=== PATIENT | female | born 1995 | race Caucasian/White ===

== ENCOUNTER → 2019-01-13 | Outpatient (CLI) | payer BC ==
[~2019-01-13] MED LIST: ARIP15 PO; Ativan0.5 MG PO; Augmentin 875-1 EACH PO; CLON.5 PO; CYCL10; CYCL10 PO; DILT120ERA PO; DOCU100 PO; FAMO20 PO; IBUP600; LAMO50; LAVAP17G PO; LORA.5 PO; Loxapine5 MG PO; MONO-LINYAH1 EACH PO; Mononessa1 EACH PO; Norco 10-325 T1 EACH PO; Norco 5-325 Ta1 EACH PO; OMEP20ER PO; OMEP40CA12 PO; OXYACE5T PO; PRAZ1 PO; Percocet 5-3251 EACH PO; Prazosin HCl1 MG PO; SUCR1 PO; SULF500 PO; Sprintec1 EACH PO; VENL150ER PO; VENL25 PO; Zofran Odt4 MG SL
[2019-01-14 09:10] LABS: Candida species (DNA Probe) Negative (NEGATIVE); G. vaginalis (DNA Probe) Negative (NEGATIVE); T. vaginalis (DNA Probe) Negative (NEGATIVE)
== END | disposition home or self-care (01) ==
LOC: LAB 16:20 → LAB SHORT 16:20
PROVIDERS: Family Medicine
DX: N89.8 Other specified noninflammatory disorders of vagina (principal)
CPT/HCPCS: 87480; 87510; 87660

== ENCOUNTER → 2019-01-14 | Outpatient (CLI) | payer BC | END | disposition home or self-care (01) | LOC: LAB SHORT 07:52 → PLD 07:52 | DX: D48.5 Neoplasm of uncertain behavior of skin (principal) | CPT/HCPCS: 88305 ==

== ENCOUNTER → 2020-02-15 | Outpatient (CLI) | payer BC | END | disposition home or self-care (01) | LOC: LAB SHORT 15:22 → LAB 15:22 | DX: R19.7 Diarrhea, unspecified (principal) | CPT/HCPCS: 87493 ==

== ENCOUNTER 2020-10-19 12:10 | Day surgery (SDC) | payer BC ==
[~2020-10-19] VITALS: Ht 167.6 cm; Wt 130.6 kg
[~2020-10-19 12:10] MED LIST changes: +LAMO100 PO; -LAMO50; +MOBIC15 MG PO; +PRENATAL TABLE1 EAC2 PO
--- NOTE | 2020-10-19 13:34 | NUR ---
REPORT GIVEN TO JON LONDONO RN.
--- NOTE | 2020-10-19 14:28 | NUR ---
ASSUMED CARE OF PT. PAPERWORK AND COMNSENTS COMPLETE. VSS. Ambulatory in Day Surgery Surgical site prepped with 2% Chlorhexidine cloth wipe. Patient reports completing Chlorhexadine shower X2 prior to admission to hospital. Pre-Op teaching done. Pt verbalizes understanding.
--- NOTE | 2020-10-19 14:41 | NUR ---
10/19/20 1441 Jacquelin Madrigal LIDOCAINE 2% GIVEN TO THE FIELD BY DR FREEMAN FROM THE [facility]. DR HERNANDEZ INJECTED THE PT.
--- NOTE | 2020-10-19 16:20 | NUR ---
Patient up to Ambulate independently. Gait steady. Discharge instructions reviewed with patient. Patient verbalizes understanding. Copy given to patient to take home. Discharged via wheelchair to private car for ride home.
== END 2020-10-19 23:12 | disposition home or self-care (01) ==
LOC: ORSCMMR 12:10 → ORSCSDS 10-20 09:00
PROVIDERS: Orthopaedic Surgery
PROC: 0LN50ZZ Release Right Lower Arm and Wrist Tendon, Open Approach (ICD-10-PCS; principal; 2020-10-19 13:30)
DX: M65.4 Radial styloid tenosynovitis [de Quervain] (principal); I10 Essential (primary) hypertension; E28.2 Polycystic ovarian syndrome; E66.01 Morbid (severe) obesity due to excess calories; Z68.42 Body mass index [BMI] 45.0-49.9, adult; Z79.899 Other long term (current) drug therapy
CPT/HCPCS: A9270; J0690; J2250; J2405; J3010; J7120

== ENCOUNTER 2023-01-17 23:55 | Emergency (ER) | payer OTHER ==
[~2023-01-17] VITALS: Ht 172.7 cm; Wt 129.7 kg
== END 2023-01-18 02:00 | disposition home or self-care (01) ==
LOC: ER 23:55
DX: S69.91XA Unspecified injury of right wrist, hand and finger(s), initial encounter (principal); W23.0XXA Caught, crushed, jammed, or pinched between moving objects, initial encounter; I10 Essential (primary) hypertension; J45.909 Unspecified asthma, uncomplicated
CPT/HCPCS: 29105; 73110; 99283-25; A9270

== ENCOUNTER → 2023-11-06 | Outpatient (CLI) | payer BC ==
[2023-11-08 09:17] LABS: APTIMA MEDIA TYPE Urine; C. TRACHOMATIS BY TMA Negative (Negative); N. GONORRHOEAE BY TMA Negative (Negative); SPECIMEN SOURCE Urine
== END ==
LOC: LAB 12:19 → LAB SHORT 12:19
PROVIDERS: Family Medicine
DX: Z34.01 Encounter for supervision of normal first pregnancy, first trimester (principal); Z3A.01 Less than 8 weeks gestation of pregnancy
CPT/HCPCS: 87086

== ENCOUNTER → 2023-11-26 | Outpatient (CLI) | payer BC, OTHER ==
[2023-11-29 19:51] LABS: APTIMA MEDIA TYPE Urine; C. TRACHOMATIS BY TMA Negative (Negative); N. GONORRHOEAE BY TMA Negative (Negative); SPECIMEN SOURCE Urine
== END ==
LOC: LAB SHORT 13:50 → LAB 13:50
PROVIDERS: Family Medicine
DX: Z34.01 Encounter for supervision of normal first pregnancy, first trimester (principal); Z3A.01 Less than 8 weeks gestation of pregnancy
CPT/HCPCS: 87491; 87591

== ENCOUNTER → 2024-05-10 | Outpatient (CLI) | payer BC, OTHER ==
[2024-05-10 19:25] LABS: Protein, Urine Random 31.8 mg/dL (0.0-11.9); Protein/Creat Ratio, Ur Random 0.2
== END | disposition home or self-care (01) ==
LOC: LAB 17:58 → LAB SHORT 17:58
PROVIDERS: Family Medicine
DX: Z34.02 Encounter for supervision of normal first pregnancy, second trimester (principal)
CPT/HCPCS: 82570; 84156

== ENCOUNTER 2024-05-19 06:14 | Observation (INO) | payer BC, OTHER ==
[2024-05-19] VITALS (24 sets, daily range): BP systolic 115–173; BP diastolic 59–99
[~2024-05-19] VITALS: Ht 170.2 cm; Wt 133.2 kg
[2024-05-19 05:25] LABS: BASOPHILS ABSOLUTE AUTO 0.02 K/mm3 (0.00-0.23); BASOPHILS PERCENT AUTO 0 % (0-2); EOSINOPHILS PERCENT AUTO 0 % (0-6); Hematocrit 31.7 % (33.0-51.0); Hemoglobin 11.2 g/dL (11.5-16.0); IMMATURE GRAN ABSOLUTE AUTO 0.02 K/mm3 (0.00-0.10); IMMATURE GRAN PERCENT AUTO 0 % (0-1); LYMPHOCYTES ABSOLUTE AUTO 0.63 K/mm3 (0.84-5.20); LYMPHOCYTES PERCENT AUTO 9 % (21-46); MONOCYTES ABSOLUTE AUTO 0.48 K/mm3 (0.16-1.47); MONOCYTES PERCENT AUTO 7 % (4-13); Mean Corpuscular HGB Conc 35.3 g/dL (31.5-36.5); Mean Corpuscular Volume 85 fL (80-100); Mean Platelet Volume 12.2 fL (9.1-12.4); NEUTROPHILS ABSOLUTE AUTO 6.09 K/mm3 (1.96-9.15); NEUTROPHILS PERCENT AUTO 84 % (41-73); Platelet Count 177 K/mm3 (150-400); RDW Coefficient Variation 13.1 % (11.7-14.2); RDW Standard Deviation 40.2 fL (35.1-46.3); Red Blood Cell Count 3.73 M/mm3 (3.80-5.20); White Blood Cell Count 7.24 K/mm3 (4.00-11.30)
[2024-05-19 05:32] LABS: Creatinine, Urine Random 75.7 mg/dL (27.00-270.00); Protein, Urine Random 13.6 mg/dL (0.0-11.9); Protein/Creat Ratio, Ur Random 0.2
[2024-05-19 05:34] LABS: Albumin, Blood 2.6 g/dL (3.4-5.0); Albumin/Globulin Ratio 0.7 (0.8-1.8); Bilirubin, Total 0.3 mg/dL (0.1-1.0); Bun/Creatinine Ratio 10.5 (12.0-20.0); Calcium, Blood 9.2 mg/dL (8.5-10.1); Creatinine, Blood 0.66 mg/dL (0.40-1.00); Globulin, Blood 3.7 g/dL (2.2-4.0); Potassium, Blood 3.5 mmol/L (3.5-5.5); Total Protein, Blood 6.3 g/dL (6.4-8.2)
[~2024-05-19 06:14] MED LIST changes: +Calcium Gluconate 0.465 mEq/ml 10 ml Vial IV PRN; +HydrALAZINE HCl 20 MG / ML 1ML Vial IV ONE; +HydrALAZINE HCl 20 MG / ML 1ML Vial IV SCH; +Labetalol HCL 5 MG/ML 4ML Injection (Single Dose) IV ONE; +Labetalol HCL 5 MG/ML 4ML Injection (Single Dose) IV PRN; +Labetalol HCL 5 MG/ML 4ML Injection (Single Dose) ONE; +Lactated Ringer's 1,000 ML IV ONE; +Lactated Ringer's 1,000 ML IV SCH; +Magnesium Sul 4 GM/Water100 ML 100 ML IV ONE; +Magnesium Sul 4 GM/Water100 ML 100 ML IV SCH; +Magnesium Sulf 2 GM/Water 50ML 50 ML IV ONE; +Magnesium Sulfate 500 ML IV ONE; +NIFEdipine 10 MG Cap PO PRN; +NIFEdipine 10 MG Cap PO SCH
[2024-05-19 06:18] LABS: International Normalized Ratio 0.94; Prothrombin Time Results 10.1 Sec (9.7-11.5)
[2024-05-19] MEDS ORDERED: Acetaminophen 500 MG Tab PO PRN (08:05)
[2024-05-19] MEDS ORDERED: Ondansetron 8 MG SoluTab SL PRN (08:05)
[2024-05-19] MEDS ORDERED: Calcium Carbonate 500 MG Tab Chew PO PRN (08:05)
[2024-05-19] MEDS ORDERED: Zolpidem Tartrate 10 MG Tab PO PRN (08:05)
--- NOTE | 2024-05-19 08:46 | NUR ---
BREAKFAST TRAY AT BEDSIDE,
[2024-05-19] MEDS ORDERED: Labetalol HCL 100 MG TAB PO SCH (09:00)
[2024-05-19 12:32] LABS: BASOPHILS ABSOLUTE AUTO 0.01 K/mm3 (0.00-0.23); BASOPHILS PERCENT AUTO 0 % (0-2); EOSINOPHILS PERCENT AUTO 0 % (0-6); Hematocrit 30.4 % (33.0-51.0); Hemoglobin 10.6 g/dL (11.5-16.0); IMMATURE GRAN ABSOLUTE AUTO 0.02 K/mm3 (0.00-0.10); IMMATURE GRAN PERCENT AUTO 0 % (0-1); LYMPHOCYTES ABSOLUTE AUTO 0.93 K/mm3 (0.84-5.20); LYMPHOCYTES PERCENT AUTO 16 % (21-46); MONOCYTES ABSOLUTE AUTO 0.49 K/mm3 (0.16-1.47); MONOCYTES PERCENT AUTO 8 % (4-13); Mean Corpuscular HGB 30.1 pg (26.0-34.0); Mean Corpuscular HGB Conc 34.9 g/dL (31.5-36.5); Mean Corpuscular Volume 86 fL (80-100); Mean Platelet Volume 11.5 fL (9.1-12.4); NEUTROPHILS ABSOLUTE AUTO 4.51 K/mm3 (1.96-9.15); NEUTROPHILS PERCENT AUTO 76 % (41-73); Platelet Count 169 K/mm3 (150-400); RDW Coefficient Variation 13.3 % (11.7-14.2); RDW Standard Deviation 41.1 fL (35.1-46.3); Red Blood Cell Count 3.52 M/mm3 (3.80-5.20); White Blood Cell Count 5.96 K/mm3 (4.00-11.30)
[2024-05-19 12:56] LABS: Albumin, Blood 2.3 g/dL (3.4-5.0); Albumin/Globulin Ratio 0.6 (0.8-1.8); Bilirubin, Total 0.2 mg/dL (0.1-1.0); Bun/Creatinine Ratio 9.1 (12.0-20.0); Calcium, Blood 8.6 mg/dL (8.5-10.1); Creatinine, Blood 0.66 mg/dL (0.40-1.00); Globulin, Blood 3.6 g/dL (2.2-4.0); Potassium, Blood 3.4 mmol/L (3.5-5.5); Total Protein, Blood 5.9 g/dL (6.4-8.2)
[2024-05-19] MEDS ORDERED: Venlafaxine HCl 75 MG CapCR PO SCH (21:00)
[2024-05-20 04:59] VITALS: BP 136/83
[2024-05-20] MEDS ORDERED: Magnesium Sulfate 500 ML IV SCH (05:00)
[2024-05-20 07:17] VITALS: BP 133/89
[2024-05-20 07:19] LABS: Protein, Urine Quantitative 15.1 mg/dL (0.0-11.9)
[2024-05-20] MEDS ORDERED: LABE100 PO (08:13)
[2024-05-20] MEDS ORDERED: VENLAFAXINE HC225 MG PO (08:13)
[2024-05-20 09:14] VITALS: BP 108/57
== END 2024-05-20 09:55 | disposition home or self-care (01) ==
LOC: OBS 06:14 → BC 06:14 → OBS 10:51 → BC 10:51 → OBS 10:56 → BC 10:56
PROVIDERS: Family Medicine; Pediatrics; ADMIT Family Medicine
DX: O13.3 Gestational [pregnancy-induced] hypertension without significant proteinuria, third trimester (principal); Z3A.35 35 weeks gestation of pregnancy; Z79.899 Other long term (current) drug therapy
CPT/HCPCS: 36415; 80053; 81003; 82570; 83615; 84156; 85025; 85384; 85610; 85730; 96365; 96366; 96376; A9270; G0378; J3475; J7120

== ENCOUNTER 2024-05-20 10:37 | Inpatient (IN) | payer BC, OTHER ==
[~2024-05-20] VITALS: Ht 170.2 cm; Wt 132.7 kg
[~2024-05-20 10:37] MED LIST changes: -Calcium Gluconate 0.465 mEq/ml 10 ml Vial IV PRN; -HydrALAZINE HCl 20 MG / ML 1ML Vial IV ONE; -HydrALAZINE HCl 20 MG / ML 1ML Vial IV SCH; +LABE100 PO; -Labetalol HCL 5 MG/ML 4ML Injection (Single Dose) IV ONE; -Labetalol HCL 5 MG/ML 4ML Injection (Single Dose) IV PRN; -Labetalol HCL 5 MG/ML 4ML Injection (Single Dose) ONE; -Lactated Ringer's 1,000 ML IV ONE; -Lactated Ringer's 1,000 ML IV SCH; -Magnesium Sul 4 GM/Water100 ML 100 ML IV ONE; -Magnesium Sul 4 GM/Water100 ML 100 ML IV SCH; -Magnesium Sulf 2 GM/Water 50ML 50 ML IV ONE; -Magnesium Sulfate 500 ML IV ONE; -NIFEdipine 10 MG Cap PO PRN; -NIFEdipine 10 MG Cap PO SCH; +VENLAFAXINE HC225 MG PO
[2024-05-20] MEDS ORDERED: Lactated Ringer's 1,000 ML IV SCH ×2 (12:05)
[2024-05-20] MEDS ORDERED: Castor Oil 59.146 ML BTL TOP SCH (12:05)
[2024-05-20] MEDS ORDERED: Bupivacaine HCl 2.5 MG/ML 10ML P/F Injection XX SCH (12:05)
[2024-05-20] MEDS ORDERED: Oxytocin 10 Unit / ML Vial IM SCH (12:05)
[2024-05-20] MEDS ORDERED: Lactated Ringer's 1,000 ML IV PRN ×2 (12:05→13:55)
[2024-05-20] MEDS ORDERED: Bupivacaine 0.5% HCl 5 MG/ML 30MLVIAL XX SCH (12:05)
[2024-05-20] MEDS ORDERED: Lidocaine HCl 1% 30 ML SDV XX SCH (12:05)
[2024-05-20] MEDS ORDERED: FentaNYL 2mcg/ml-Bup 0.1% Epd 250 ML EPI PRN (12:05)
[2024-05-20] MEDS ORDERED: ePHEDrine Sulfate 50 MG/ML 1ML Injection XX PRN (12:05)
[2024-05-20] MEDS ORDERED: OXYTOCIN/RINGER'S LACTATE 500 ML IV SCH (12:05)
[2024-05-20] MEDS ORDERED: Methylergonovine Maleate 0.2MG / ML 1ML Amp IM SCH (12:05)
[2024-05-20] MEDS ORDERED: Misoprostol 200 MCG Tab PR SCH (12:05)
[2024-05-20] MEDS ORDERED: Ondansetron 8 MG SoluTab MM PRN (13:00)
[2024-05-20] MEDS ORDERED: Zolpidem Tartrate 10 MG Tab PO PRN (13:00)
[2024-05-20] MEDS ORDERED: Acetaminophen 500 MG Tab PO PRN (13:00)
[2024-05-20 13:14] VITALS: BP 128/80
[2024-05-20] MEDS ORDERED: Ampicillin Sod 2,000 MG in NS 100 ML IV STA (14:25)
[2024-05-20 14:29] LABS: BASOPHILS ABSOLUTE AUTO 0.02 K/mm3 (0.00-0.23); BASOPHILS PERCENT AUTO 0 % (0-2); EOSINOPHILS PERCENT AUTO 0 % (0-6); Hematocrit 33.2 % (33.0-51.0); Hemoglobin 11.6 g/dL (11.5-16.0); IMMATURE GRAN ABSOLUTE AUTO 0.02 K/mm3 (0.00-0.10); IMMATURE GRAN PERCENT AUTO 0 % (0-1); LYMPHOCYTES ABSOLUTE AUTO 1.02 K/mm3 (0.84-5.20); LYMPHOCYTES PERCENT AUTO 19 % (21-46); MONOCYTES ABSOLUTE AUTO 0.51 K/mm3 (0.16-1.47); MONOCYTES PERCENT AUTO 9 % (4-13); Mean Corpuscular HGB 30.1 pg (26.0-34.0); Mean Corpuscular HGB Conc 34.9 g/dL (31.5-36.5); Mean Corpuscular Volume 86 fL (80-100); Mean Platelet Volume 11.7 fL (9.1-12.4); NEUTROPHILS ABSOLUTE AUTO 3.89 K/mm3 (1.96-9.15); NEUTROPHILS PERCENT AUTO 71 % (41-73); Platelet Count 195 K/mm3 (150-400); RDW Coefficient Variation 13.5 % (11.7-14.2); RDW Standard Deviation 41.7 fL (35.1-46.3); Red Blood Cell Count 3.85 M/mm3 (3.80-5.20); White Blood Cell Count 5.46 K/mm3 (4.00-11.30)
[2024-05-20] MEDS ORDERED: Calcium Carbonate 500 MG Tab Chew PO PRN (16:35)
[2024-05-20 16:37] VITALS: BP 125/72
[2024-05-20 18:04] VITALS: BP 133/69
[2024-05-20] MEDS ORDERED: Ampicillin Sod 1,000 MG in NS 100 ML IV SCH (18:30)
[2024-05-20] MEDS ORDERED: Venlafaxine HCl 75 MG CapCR PO SCH (21:00)
[2024-05-20] MEDS ORDERED: Labetalol HCL 100 MG TAB PO SCH (21:00)
[2024-05-20] MEDS ORDERED: Docusate Sodium 100 MG Cap PO SCH (21:00)
[2024-05-20 21:38] VITALS: BP 141/81
[2024-05-21] VITALS (31 sets, daily range): BP systolic 117–157; BP diastolic 59–104
[2024-05-21] MEDS ORDERED: Misoprostol 25 MCG Tab VAG PRN
[2024-05-21] MEDS ORDERED: Ampicillin Sod 1,000 MG in NS 100 ML IV SCH ×2 (04:00→22:05)
[2024-05-21 14:32] LABS: BASOPHILS ABSOLUTE AUTO 0.02 K/mm3 (0.00-0.23); BASOPHILS PERCENT AUTO 0 % (0-2); EOSINOPHILS PERCENT AUTO 0 % (0-6); Hematocrit 32.5 % (33.0-51.0); Hemoglobin 11.4 g/dL (11.5-16.0); IMMATURE GRAN ABSOLUTE AUTO 0.01 K/mm3 (0.00-0.10); IMMATURE GRAN PERCENT AUTO 0 % (0-1); LYMPHOCYTES ABSOLUTE AUTO 1.15 K/mm3 (0.84-5.20); LYMPHOCYTES PERCENT AUTO 17 % (21-46); MONOCYTES ABSOLUTE AUTO 0.47 K/mm3 (0.16-1.47); MONOCYTES PERCENT AUTO 7 % (4-13); Mean Corpuscular HGB 30.2 pg (26.0-34.0); Mean Corpuscular HGB Conc 35.1 g/dL (31.5-36.5); Mean Corpuscular Volume 86 fL (80-100); Mean Platelet Volume 11.5 fL (9.1-12.4); NEUTROPHILS ABSOLUTE AUTO 5.19 K/mm3 (1.96-9.15); NEUTROPHILS PERCENT AUTO 76 % (41-73); Platelet Count 180 K/mm3 (150-400); RDW Coefficient Variation 13.2 % (11.7-14.2); RDW Standard Deviation 41.1 fL (35.1-46.3); Red Blood Cell Count 3.77 M/mm3 (3.80-5.20); White Blood Cell Count 6.84 K/mm3 (4.00-11.30)
[2024-05-21 14:50] LABS: Albumin, Blood 2.3 g/dL (3.4-5.0); Albumin/Globulin Ratio 0.6 (0.8-1.8); Bilirubin, Total 0.3 mg/dL (0.1-1.0); Bun/Creatinine Ratio 12.7 (12.0-20.0); Calcium, Blood 8.6 mg/dL (8.5-10.1); Creatinine, Blood 0.55 mg/dL (0.40-1.00); Globulin, Blood 3.8 g/dL (2.2-4.0); Potassium, Blood 3.6 mmol/L (3.5-5.5); Total Protein, Blood 6.1 g/dL (6.4-8.2)
[2024-05-21] MEDS ORDERED: FentaNYL Citrate 50 MCG/ML 2 ML Injection IV PRN (18:00)
[2024-05-21] MEDS ORDERED: Ampicillin Sod 2,000 MG in NS 100 ML IV ONE ×2 (18:00)
[2024-05-21] MEDS ORDERED: Lactated Ringer's 1,000 ML IV SCH (18:20)
[2024-05-21] MEDS ORDERED: OXYTOCIN/RINGER'S LACTATE 500 ML IV SCH (18:20)
[2024-05-21] MEDS ORDERED: Naloxone HCl 0.4MG / ML 1ML Vial IV PRN (22:05)
[2024-05-21] MEDS ORDERED: Ondansetron HCl 2 MG / ML 2ML Vial IV PRN (22:05)
[2024-05-21] MEDS ORDERED: DiphenhydrAMINE HCl 50 MG/ML 1ML Vial IV PRN (22:05)
[2024-05-21] MEDS ORDERED: ePHEDrine Sulfate 50 MG/ML 1ML Injection IV PRN (22:10)
[2024-05-22] VITALS (26 sets, daily range): BP systolic 104–168; BP diastolic 56–96
[2024-05-22] MEDS ORDERED: OXYTOCIN/RINGER'S LACTATE 500 ML IV SCH (06:05)
[2024-05-22] MEDS ORDERED: Ampicillin Sod 2,000 MG in NS 100 ML IV ONE (08:00)
[2024-05-22] MEDS ORDERED: Acetaminophen 325 MG TABLET PO PRN (10:30)
[2024-05-22] MEDS ORDERED: Misoprostol 100 MCG Tab PO PRN (10:30)
[2024-05-22] MEDS ORDERED: Methylergonovine Maleate 0.2MG / ML 1ML Amp IM PRN (10:30)
[2024-05-22] MEDS ORDERED: Lactated Ringer's 1,000 ML IV SCH (10:30)
[2024-05-22] MEDS ORDERED: Carboprost Tromethamine 250 MCG/ML 1ML Amp IM PRN (10:30)
[2024-05-22] MEDS ORDERED: Misoprostol 200 MCG Tab PR PRN (10:30)
[2024-05-22] MEDS ORDERED: OxyCODONE 5 mg/Acetamin 325 mg TABLET PO PRN (10:30)
[2024-05-22 10:34] LABS: PCO2 Cord - Arterial 46.9 mmHg (40-50); pH Cord - Arterial 7.33 (7.28-7.35)
[2024-05-22] MEDS ORDERED: Ibuprofen 400 MG Tab PO PRN (10:35)
[2024-05-22] MEDS ORDERED: Benzocaine Topical Anesthetic Spray 60GM TOP PRN (10:35)
[2024-05-22] MEDS ORDERED: Witch Hazel/Glycerin PADS TOP PRN (10:35)
[2024-05-22] MEDS ORDERED: Docusate Sodium 100 MG Cap PO PRN (10:35)
[2024-05-22 10:36] LABS: PO2 Cord - Arterial < 14.0 mmHg (16-20)
[2024-05-22 10:40] LABS: PCO2 Cord - Venous 32.7 mmHg (40-50); PO2 Cord - Venous 23.1 mmHg (28-32); pH Umbilical Cord - Venous 7.43 (7.26-7.35)
[2024-05-22] MEDS ORDERED: Ketorolac Tromethamine 30mg Vial IV SCH (11:00)
[2024-05-22] MEDS ORDERED: Ampicillin Sod 1,000 MG in NS 100 ML IV SCH ×2 (17:00→22:00)
--- NOTE | 2024-05-22 20:12 | NUR ---
INITIAL BP 145/81. PT DENIES ANY HYPERTENSIVE SYMPTOMS. DTR +2 AND NO CLONUS PRESENT. OIL AND GAS SUPERINTENDENT UPDATED DR BOYD AND ORDER RECEIVED TO CONTINUE LABETALOL 100MG BID.
[2024-05-23 00:25] VITALS: BP 141/82
[2024-05-23 04:38] VITALS: BP 168/101
[2024-05-23 04:40] VITALS: BP 152/88
--- NOTE | 2024-05-23 05:09 | NUR ---
BP 168/101, PT SITTING UP AND TALKING DURING SAME. REPEAT BP 152/88. PT REPORTS MODERATE PAIN. ANALGESIC ADMINSITERED PER EMAR. DENIES ANY HYPERTENSIVE SYMPTOMS. WITHER UPDATED SUPERINTENDENT STATIONSMONET Villagran. PLAN TO REPEAT BP IN ONE HOUR.
[2024-05-23 06:08] VITALS: BP 146/83
[2024-05-23 07:06] LABS: BASOPHILS ABSOLUTE AUTO 0.02 K/mm3 (0.00-0.23); BASOPHILS PERCENT AUTO 0 % (0-2); EOSINOPHILS PERCENT AUTO 0 % (0-6); Hemoglobin 11.2 g/dL (11.5-16.0); IMMATURE GRAN ABSOLUTE AUTO 0.02 K/mm3 (0.00-0.10); IMMATURE GRAN PERCENT AUTO 0 % (0-1); LYMPHOCYTES ABSOLUTE AUTO 2.19 K/mm3 (0.84-5.20); LYMPHOCYTES PERCENT AUTO 30 % (21-46); MONOCYTES ABSOLUTE AUTO 0.41 K/mm3 (0.16-1.47); MONOCYTES PERCENT AUTO 6 % (4-13); Mean Corpuscular HGB 29.9 pg (26.0-34.0); Mean Corpuscular Volume 86 fL (80-100); Mean Platelet Volume 11.7 fL (9.1-12.4); NEUTROPHILS ABSOLUTE AUTO 4.64 K/mm3 (1.96-9.15); NEUTROPHILS PERCENT AUTO 64 % (41-73); Platelet Count 195 K/mm3 (150-400); RDW Coefficient Variation 13.2 % (11.7-14.2); RDW Standard Deviation 40.6 fL (35.1-46.3); Red Blood Cell Count 3.74 M/mm3 (3.80-5.20); White Blood Cell Count 7.28 K/mm3 (4.00-11.30)
[2024-05-23 07:30] VITALS: BP 127/81
[2024-05-23] MEDS ORDERED: Prenatal Vit/FE Fumarate/FA 1 Tab PO SCH (09:00)
[2024-05-23 11:02] VITALS: BP 142/85
== END 2024-05-23 11:15 | disposition home or self-care (01) | DRG 807 ==
LOC: OBS 10:37 → BC 10:38 → OBS 11:05 → BC 05-21 19:36
PROVIDERS: ADMIT Family Medicine
PROC: 10E0XZZ Delivery of Products of Conception, External Approach (ICD-10-PCS; principal; 2024-05-22)
PROC: 4A033R1 Measurement of Arterial Saturation, Peripheral, Percutaneous Approach (ICD-10-PCS; 2024-05-22)
PROC: 10907ZC Drainage of Amniotic Fluid, Therapeutic from Products of Conception, Via Natural or Artificial Opening (ICD-10-PCS; 2024-05-22)
PROC: 3E0R3BZ Introduction of Anesthetic Agent into Spinal Canal, Percutaneous Approach (ICD-10-PCS; 2024-05-22)
PROC: 00HU33Z Insertion of Infusion Device into Spinal Canal, Percutaneous Approach (ICD-10-PCS; 2024-05-22)
DX: O99.824 Streptococcus B carrier state complicating childbirth (principal); Z37.0 Single live birth; O14.94 Unspecified pre-eclampsia, complicating childbirth; Z3A.36 36 weeks gestation of pregnancy; O60.14X0 Preterm labor third trimester with preterm delivery third trimester, not applicable or unspecified; O99.214 Obesity complicating childbirth; E66.01 Morbid (severe) obesity due to excess calories
CPT/HCPCS: 36415; 51702; 80053; 82803; 85025; 86850; 86900; 86901; 86923; A9270; J0290; J1885; J2590; J3010; J7120

== ENCOUNTER → 2024-08-20 | Outpatient (CLI) | payer BC, OTHER ==
[2024-09-03 14:25] LABS: HPV GENOTYPE 16 BY TMA Not Detected; HPV GENOTYPE 18/45 BY TMA Not Detected; HPV HIGH RISK BY TMA Detected; HPV SOURCE Cervical; HPVG SOURCE Cervical
== END | disposition home or self-care (01) ==
LOC: LAB SHORT 12:03 → LAB 12:03
PROVIDERS: Family Medicine
DX: Z12.4 Encounter for screening for malignant neoplasm of cervix (principal)
CPT/HCPCS: 87624; 87625; G0123

== ENCOUNTER → 2024-10-20 | Outpatient (CLI) | payer BC, OTHER | END | disposition home or self-care (01) | LOC: LAB 13:02 → LAB SHORT 13:02 | DX: R87.613 High grade squamous intraepithelial lesion on cytologic smear of cervix (HGSIL) (principal) | CPT/HCPCS: 88305 ==

== ENCOUNTER → 2025-01-12 | Outpatient (CLI) | payer BC, OTHER ==
[2025-01-12 14:14] LABS: Adenovirus F 40/41 Not Detected (NOT DETECT); Astrovirus Not Detected (NOT DETECT); Campylobacter Sp Not Detected (NOT DETECT); Cryptosporidium Not Detected (NOT DETECT); Cyclospora Cayetanensis Not Detected (NOT DETECT); E. Coli O157 Not Detected (NOT DETECT); Entamoeba Histolytica Not Detected (NOT DETECT); Enteroaggregative E. coli-EAEC Not Detected (NOT DETECT); Enteropathogenic E. coli-EPEC Not Detected (NOT DETECT); Enterotoxigenic E. coli-ETEC Not Detected (NOT DETECT); Giardia Lamblia Not Detected (NOT DETECT); Norovirus GI/GII Not Detected (NOT DETECT); Plesiomonas Shigelloides Not Detected (NOT DETECT); Rotavirus A Not Detected (NOT DETECT); Salmonella Sp Not Detected (NOT DETECT); Sapovirus Not Detected (NOT DETECT); Shiga Toxin-prod E. coli-STEC Not Detected (NOT DETECT); Shigella/Enteroin E. coli-EIEC Not Detected (NOT DETECT); Vibrio Cholerae Not Detected (NOT DETECT); Vibrio Sp Not Detected (NOT DETECT); Yersinia Enterocolitica Not Detected (NOT DETECT)
== END ==
LOC: LAB SHORT 10:25 → LAB 10:25
PROVIDERS: Physician Assistant Medical
DX: K50.919 Crohn's disease, unspecified, with unspecified complications (principal)
CPT/HCPCS: 87507

== ENCOUNTER 2025-02-26 10:13 | Emergency (ER) | payer BC, OTHER ==
[~2025-02-26] VITALS: Ht 172.7 cm; Wt 142.4 kg
[2025-02-26] MEDS ORDERED: Ativan1 MG PO (10:25)
[2025-02-26] MEDS ORDERED: NS 1,000 ML IV SCH (10:55)
[2025-02-26] MEDS ORDERED: FentaNYL Citrate 50 MCG/ML 2 ML Injection IV ONE (10:55)
[2025-02-26 11:11] LABS: BASOPHILS ABSOLUTE AUTO 0.03 K/mm3 (0.00-0.23); BASOPHILS PERCENT AUTO 1 % (0-2); EOSINOPHILS PERCENT AUTO 0 % (0-6); Hematocrit 39.9 % (33.0-51.0); Hemoglobin 13.8 g/dL (11.5-16.0); IMMATURE GRAN ABSOLUTE AUTO 0.01 K/mm3 (0.00-0.10); IMMATURE GRAN PERCENT AUTO 0 % (0-1); LYMPHOCYTES ABSOLUTE AUTO 1.11 K/mm3 (0.84-5.20); LYMPHOCYTES PERCENT AUTO 23 % (21-46); MONOCYTES ABSOLUTE AUTO 0.46 K/mm3 (0.16-1.47); MONOCYTES PERCENT AUTO 10 % (4-13); Mean Corpuscular HGB 30.1 pg (26.0-34.0); Mean Corpuscular HGB Conc 34.6 g/dL (31.5-36.5); Mean Corpuscular Volume 87 fL (80-100); Mean Platelet Volume 10.6 fL (9.1-12.4); NEUTROPHILS ABSOLUTE AUTO 3.17 K/mm3 (1.96-9.15); NEUTROPHILS PERCENT AUTO 66 % (41-73); Platelet Count 236 K/mm3 (150-400); RDW Coefficient Variation 13.1 % (11.7-14.2); RDW Standard Deviation 41.3 fL (35.1-46.3); Red Blood Cell Count 4.59 M/mm3 (3.80-5.20); White Blood Cell Count 4.78 K/mm3 (4.00-11.30)
[2025-02-26 11:19] LABS: Source, Urine Clean Catch
[2025-02-26] MEDS ORDERED: Ondansetron HCl 2 MG / ML 2ML Vial IV ONE (11:25)
[2025-02-26 11:33] LABS: Appearance, Urine Clear (Clear); Bilirubin, Urine Neg (Neg); Blood, Urine Neg (Neg); Glucose Qualitative, Urine Neg (Neg); Ketones, Urine Neg (Neg); Leukocyte Esterase, Urine Neg (Neg); Nitrite, Urine Neg (Neg); Protein, Urine Neg (Neg); Urobilinogen, Urine NORM (Normal); pH, Urine 6.5 (5.0-8.0)
[2025-02-26 11:42] LABS: Albumin, Blood 3.6 g/dL (3.4-5.0); Albumin/Globulin Ratio 1.1 (0.8-1.8); Bilirubin, Total 0.6 mg/dL (0.1-1.0); Bun/Creatinine Ratio 16.1 (12.0-20.0); Calcium, Blood 8.8 mg/dL (8.5-10.1); Creatinine, Blood 0.74 mg/dL (0.40-1.00); Globulin, Blood 3.2 g/dL (2.2-4.0); Potassium, Blood 3.6 mmol/L (3.5-5.5); Total Protein, Blood 6.8 g/dL (6.4-8.2)
[2025-02-26 11:43] LABS: Color, Urine Pale Yellow (P-Yellow)
[2025-02-26 12:26] VITALS: BP 196/51
[2025-02-26] MEDS ORDERED: PredniSONE 20 MG Tab PO ONE (12:50)
[2025-02-26] MEDS ORDERED: PRED20 PO (12:55)
[2025-02-26] MEDS ORDERED: Percocet 5-3251 EACH PO (12:55)
[2025-02-26] MEDS ORDERED: ONDA4ODT MM (12:55)
[2025-02-27] MEDS ORDERED: PRED20 PO (10:23)
== END 2025-02-26 13:12 | disposition home or self-care (01) ==
LOC: ER 10:13
PROVIDERS: Student in an Organized Health Care Education/Training Program
DX: K51.911 Ulcerative colitis, unspecified with rectal bleeding (principal); J45.909 Unspecified asthma, uncomplicated
CPT/HCPCS: 74177; 80053; 81003; 82272; 83690; 84702; 85025; 96361; 96374-59; 96375; 99284-25; J2405; J3010; J7030; J7512; Q9967